=== PATIENT | female | born 1995 | race African-American/Black ===

== ENCOUNTER 2016-10-13 19:47 | Emergency (ER) | payer OTHER ==
--- NOTE | ~2016-10-13 | US67 ---
[facility] A Service [facility] RADIOLOGY TEXT RESULTS PATIENT: KENNEDY MOULTON LOCATION: [facility] : [birth year] UNIT #: [id number] AGE: [address]: Vandana Corey MD SEX: F ORDER DR: [id number] [facility] [address] [place], [place] [address] [id number] E MR#: [id number] Acc #: [id number] NAME: KENNEDY MOULTON : 1995 SEX: F STUDY DATE/TIME: 10/13/2016 21:06 UNIT: [facility] ROOM: STUDY DESCRIPTION: Gallbladder Attending Physician: Vandana Corey M.D. Ordering Physician: Vandana Corey M.D. Primary Care Physician: No Primary Care Physician MEDICAL IMAGING REPORT This report is preliminary unless electronic signature is present EXAM Gallbladder sonogram HISTORY Right upper quadrant pain beginning today with nausea. TECHNIQUE Ultrasound evaluation was performed through the right upper quadrant with zamora-scale color-flow and Doppler spectral waveform analysis. FINDINGS The liver is somewhat echogenic suggesting fatty infiltration. The biliary tree is nondilated. Flow in the portal vein and inferior vena cava is unremarkable. No ascites is seen. The right kidney, pancreas and gallbladder have a normal appearance. IMPRESSION Somewhat hyperechoic liver suggesting fatty infiltration. Otherwise negative. Dictated by... Mark Gore M.D. THIS IS AN ELECTRONICALLY VERIFIED REPORT Mark Gore M.D. at 10/14/2016 10:08 AM RHODA/denis TD: 10/13/2016 22:49 JOB #: [id number] MEDICAL IMAGING REPORT [facility] A Service [facility] RADIOLOGY TEXT RESULTS PATIENT: KENNEDY MOULTON LOCATION: [facility] : [birth year] UNIT #: [id number] AGE: [address]: Vandana Corey MD SEX: F ORDER DR: Page 1 of 1 COPY
[2016-10-13 19:24] LABS: URINE SOURCE CLEAN CATCH
[2016-10-13 19:28] LABS: URINE APPEARANCE TURBID; URINE BILIRUBIN NEG (NEG); URINE BLOOD NEG (NEG); URINE COLOR YELLOW; URINE GLUCOSE NEG (NEG); URINE KETONE 1+ (NEG); URINE LEUKOCYTE ESTERASE 1+ (NEG); URINE NITRATE NEG (NEG); URINE PROTEIN NEG (NEG); URINE SPECIFIC GRAVITY 1.016 (1.003-1.035); URINE UROBILINOGEN 0.2 MG/DL (NEG)
[2016-10-13 19:30] LABS: CULTURE INDICATED? YES; URINE BACTERIA AUWI 4+ (NEGATIVE); URINE SQUAMOUS EPITHELIAL CELL MOD /[HPF]
[2016-10-13 19:34] LABS: BASOPHIL# 0.1 X10e3 (0-0.3); BASOPHIL% 0.9 % (0-2.5); EOSINOPHIL# 0.1 X10e3 (0-0.7); EOSINOPHIL% 1.5 % (0.0-7.0); HEMATOCRIT 39.4 % (35.0-45.0); HEMOGLOBIN 12.7 gm/dL (12.0-16.0); LYMPHOCYTE# 2.8 X10e3 (1.0-3.5); LYMPHOCYTE% 33.1 % (17.0-45.0); MEAN CELL VOLUME 82.3 FL (83-96); MEAN CORPUSCULAR HEMOGLOBIN 26.6 PG (28-34); MEAN CORPUSCULAR HGB CONC 32.3 g/dL (30-36); MEAN PLATELET VOLUME 8.7 FL (6.5-11.5); MONOCYTE# 0.6 X10e3 (0-1.0); MONOCYTE% 7.6 % (3.0-12.0); NEUTROPHIL# 4.8 X10e3 (1.5-7.1); NEUTROPHIL% 56.9 % (40-75); PLATELET COUNT 347 X10e3 (140-420); RED BLOOD COUNT 4.79 X10e (3.90-5.30); RED CELL DISTRIBUTION WIDTH 14.2 % (11.0-15.5); WHITE BLOOD COUNT 8.4 X10e3 (4.0-10.5)
[2016-10-13 19:35] LABS: DIFF IND NO
[2016-10-13 20:00] LABS: ALBUMIN SERUM 4.4 g/dL (3.5-5.0); BILIRUBIN, DIRECT 0.1 mg/dL (0.0-0.2); BILIRUBIN,INDIRECT 0.9 mg/dL (0.0-0.9); BUN/CREATININE RATIO 7.5; CALCIUM SERUM 8.7 mg/dL (8.4-10.2); CREATININE SERUM 0.8 mg/dL (0.6-1.4); GLOM FILT RATE Estimated 123.1 mL/min (>60); POTASSIUM 3.4 mmol/L (3.5-5.1); PROTEIN TOTAL SERUM 7.5 g/dL (6.0-8.3)
== END 2016-10-13 23:33 | disposition home or self-care (01) ==
LOC: CED 19:47
PROVIDERS: Emergency Medicine
DX: R10.13 Epigastric pain (principal)
CPT/HCPCS: 76705; 80048; 80076; 81003; 83690; 84703; 85025; 87086; 96361; 96374; 96375; 99284; J1885